=== PATIENT | female | born 1995 | race Hispanic/Latino ===

== ENCOUNTER 2017-10-22 12:30 | Emergency (ER) | payer BC ==
[2017-10-22] MEDS ORDERED: Ketorolac Tromethamine 30 MG/ML VIAL ONE (13:13)
== END 2017-10-22 13:45 | disposition home or self-care (01) ==
LOC: ERS 12:30
DX: J06.9 Acute upper respiratory infection, unspecified (principal); K03.81 Cracked tooth; F41.9 Anxiety disorder, unspecified
CPT/HCPCS: 96372; J1885

== ENCOUNTER 2018-01-08 16:26 | Emergency (ER) | payer BC ==
[2018-01-08] MEDS ORDERED: ISOVUE-370 76%-LOCM 1 ML ONE (16:40)
[2018-01-08] MEDS ORDERED: Acetaminophen 500 MG TAB ONE (17:32)
[2018-01-08 19:49] LABS: #Lymphocytes 1.9 thou/uL (1.20-3.40); #Neutrophils 7.4 thou/uL (1.40-6.50); %Basophils 0.5 % (0.0-1.0); %Eosinophils 0.2 % (0.0-10.0); %Monocytes 9.5 % (0.0-10.0); %Neutrophils 71.8 % (42.0-75.0); Hemoglobin 12.1 g/dL (12.0-16.0); Mean Corpuscular HGB CONC 33.2 g/dL (32.0-36.0); Mean Corpuscular Hemoglobin 33.7 pg (27.0-31.0); Platelet Count 289 thou/uL (130-400); RBC Distribution Width 11.6 % (11.5-14.5); Red Blood Cell (RBC) Count 3.58 mill/uL (4.20-5.40); White Blood Cell (WBC) Count 10.3 thou/uL (4.8-10.8)
[2018-01-08 20:00] LABS: BHCG - Serum Negative (NEGATIVE); Pregs Control Background? CLEAR/WHITE (CLR/WHITE); Pregs Control Bar Appear? YES (CONTROL BAR)
[2018-01-08 20:15] LABS: ALT (SGPT) 44 U/L (8-55); AST (SGOT) 42 U/L (5-34); Albumin 3.3 g/dL (3.5-5.0); Alkaline Phosphatase 90 U/L (40-150); Anion Gap 14 mmol/L (10-20); BUN (Urea Nitrogen) 8 mg/dL (7.0-18.7); Bilirubin, Total 0.2 mg/dL (0.2-1.2); Calc. Creatinine Clearance 0 mL/min (70-130); Calcium 8.9 mg/dL (7.8-10.44); Carbon Dioxide 23 mmol/L (22-29); Chloride 103 mmol/L (98-107); Estimated GFR-MDRD Greater than 90; Globulin 3.3 g/dL (2.4-3.5); Glucose 108 mg/dL (70-105); Lipase 18 U/L (8-78); Potassium 3.4 mmol/L (3.5-5.1); Protein, Total 6.6 g/dL (6.0-8.3); Sodium 137 mmol/L (136-145)
[2018-01-08] MEDS ORDERED: Ondansetron HCl/PF 4 MG/2 ML Vial ONE (20:40)
--- NOTE | 2018-01-08 21:54 | ULT ---
GALLBLADDER ULTRASOUND: 01/08/18 HISTORY: Right upper quadrant pain. Real time images of the right upper quadrant show a normal appearing gallbladder. Common duct is 3 mm . No gallbladder wall thickening. Technologist does report a positive ultrasound Lindsey's sign. The v isualized liver parenchyma is normal. Right kidney is normal in size and not obstructed. The pancreas is unremarkable. IMPRESSION: No evidence of gallstones. Technologist does report a positive ultrasound Lindsey's sign. POS:
--- NOTE | 2018-01-08 22:58 | CT ---
CT OF ABDOMEN AND PELVIS PERFORMED WITH INTRAVENOUS CONTRAST ENHANCEMENT: 01/08/18 HISTORY: Right sided abdomen pain. The lung bases are clear. The liver, spleen, pancreas and gallbladder regions appear unremarkable. Right and left adrenal glands are normal. There is a small cortical hypodensities in the upper pole r egion of the right kidney, not definitely cysts but not definitely typical for pyelonephritis, althou gh I would consider this a more likely possibility. There are no renal calculi or signs for obstructi on. There is no significant periaortic or mesenteric adenopathy. CT OF PELVIS PERFORMED WITH CONTRAST ENHANCEMENT: The appendix is normal. There is trace free fluid. No adenopathy or mass. Follicles are seen involvin g the adnexa. IMPRESSION: Findings that would raise the possibility of a right sided pyelonephritis. POS: [id number]
[2018-01-08 23:36] LABS: Bilirubin Negative (Negative); Blood, Urine Negative (Negative); Clarity CLEAR (Clear); Glucose, Urine (Dipstick) Negative (Negative); Leukocyte Moderate (Negative); Nitrite Positive (Negative); Protein, Urine (Dipstick) Negative (Neg-Trace); Urobilinogen 0.2 mg/dL (0.2-1.0)
[2018-01-08 23:38] LABS: Bacteria/HPF 4+ HPF (None Seen); Hyaline Casts/LPF 0-3 HYALINE CAST LPF (0-3 Hyaline); Pathc Cast-AUWi Flag 0.27 (0-2.49); RBC/HPF 0-3 HPF (0-3); Squamous Epithelial 0-3 HPF (0-3); WBC/HPF 21-50 HPF (0-3)
[2018-01-11 11:44] LABS: Lactate 0.49 mmol/L (0.50-2.20)
== END 2018-01-09 00:48 | disposition home or self-care (01) ==
LOC: ERS 16:26
DX: N12 Tubulo-interstitial nephritis, not specified as acute or chronic (principal); F41.9 Anxiety disorder, unspecified; F17.210 Nicotine dependence, cigarettes, uncomplicated
CPT/HCPCS: 36415; 74177; 76705; 80053; 81003; 81015; 82150; 83605; 83690; 84703; 85025; 87040; 87077; 87086; 87186; 96361; 96374; 96375; 96376; 99406; J0696; J2270; J2405